=== PATIENT | female | born 1980 | race Caucasian/White ===

== ENCOUNTER 2017-01-08 19:19 | Emergency (ER) | payer OTHER, MEDICAID ==
[2017-01-08 20:27] VITALS: BP 119/76
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
== END 2017-01-08 22:08 | disposition admitted as inpatient to this hospital (09) ==
LOC: ER 19:19
DX: O9A.213 Injury, poisoning and certain other consequences of external causes complicating pregnancy, third trimester (principal); S69.91XA Unspecified injury of right wrist, hand and finger(s), initial encounter; V59.50XA Passenger in pick-up truck or van injured in collision with unspecified motor vehicles in traffic accident, initial encounter; O99.89 Other specified diseases and conditions complicating pregnancy, childbirth and the puerperium; M54.2 Cervicalgia; M79.644 Pain in right finger(s); O26.893 Other specified pregnancy related conditions, third trimester; R42 Dizziness and giddiness; Z88.0 Allergy status to penicillin; Z88.8 Allergy status to other drugs, medicaments and biological substances; Z3A.28 28 weeks gestation of pregnancy
CPT/HCPCS: 99284; 73140; 72125; L0120

== ENCOUNTER 2017-01-08 22:05 | Outpatient (CLI) | payer OTHER, MEDICAID ==
[2017-01-08 22:51] LABS: APPEARANCE,URINE SLIGHTLY-CLOUDY; BILIRUBIN,URINE NEGATIVE (NEGATIVE); GLUCOSE, URINE NEGATIVE (NEGATIVE); KETONES,URINE NEGATIVE (NEGATIVE); LEUKOCYTE ESTERASE,URINE NEGATIVE (NEGATIVE); NITRITE,URINE NEGATIVE (NEGATIVE); PROTEIN,URINE NEGATIVE (NEGATIVE); URINE SPECIFIC GRAVITY 1.028; UROBILINOGEN,URINE NEGATIVE mg/dL (<2.0)
[2017-01-08 23:04] LABS: URINE BARBITURATES SCREEN NEGATIVE; URINE METHADONE SCREEN NEGATIVE; URINE OPIATES LOW NEGATIVE; URINE PHENCYCLIDINE SCREEN NEGATIVE
[2017-01-09 00:08] LABS: PROTHROMBIN TIME 12.3 SEC (11.4-15.4)
[2017-01-09 00:09] LABS: FIBRINOGEN 503 mg/dL (209-497); PARTIAL THROMBOPLASTIN TIME 26.7 SEC (23.5-35.8)
[2017-01-09] MEDS ORDERED: ACETAMINOPHEN 325 MG TABLET PO ONE (00:45)
[2017-01-09] MEDS ORDERED: CYCLOBENZAPRINE HCL 10 MG TABLET PO ONE (00:45)
[2017-01-09] MEDS ORDERED: ACETAMINOPHEN 325 MG TABLET ONE (00:49)
[2017-01-09] MEDS ORDERED: CYCLOBENZAPRINE HCL 10 MG TABLET ONE (00:49)
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
[2017-01-09 02:02] LABS: TOTAL RBC COUNT 2028; TYPE IN FILE? TYPE IN FILE; VOL OF FETOMATERNAL HEMORRHAGE 0 ML (0)
== END 2017-01-09 03:14 | disposition home or self-care (01) ==
LOC: LC 22:05
PROVIDERS: ATTEND Student in an Organized Health Care Education/Training Program
DX: O99.89 Other specified diseases and conditions complicating pregnancy, childbirth and the puerperium (principal); R10.32 Left lower quadrant pain; V89.2XXA Person injured in unspecified motor-vehicle accident, traffic, initial encounter
CPT/HCPCS: 36415; 76815; 80307; 81001; 85384; 85460; 85610; 85730

== ENCOUNTER 2017-03-05 16:58 | Outpatient (CLI) | payer MEDICAID ==
--- NOTE | 2017-03-05 17:25 | Non Stress Test Report ---
Non Stress Test Datetime Report Generated by CPN: 03/05/2017 17:25 DEMOGRAPHIC EGA NST: 38.5 INDICATION Indication for Study: Ordered by Provider; Other Indication for Study (NST) Other: h/o positive afp VITAL SIGNS Temperature - NST: 97.9 Pulse - NST: 91 RESP - NST: 20 NBPSYS NST: 105 NBPDIA NST: 56 MONITORING Monitor Explained: Monitor Explained; Test Explained; Patient Verbalized Understanding Time on Monitor: 03/05/2017 17:10 NST INTERVENTIONS NST Interventions: PO Hydration; Reposition Patient Physician Notified NST: Castro BABY A: [id number] BABY A Movement : Present NST Review and Verified By : K Jah RNC NST REPORT Report Trigger: Send Report
== END 2017-03-05 17:36 | disposition home or self-care (01) ==
LOC: LC 16:58
PROVIDERS: ATTEND Student in an Organized Health Care Education/Training Program
PROC: 4A1HXCZ Monitoring of Products of Conception, Cardiac Rate, External Approach (ICD-10-PCS; principal; 2017-03-05)
DX: Z34.93 Encounter for supervision of normal pregnancy, unspecified, third trimester (principal)
CPT/HCPCS: 59025

== ENCOUNTER 2017-03-15 16:58 | Outpatient (CLI) | payer MEDICAID ==
--- NOTE | 2017-03-22 20:10 | Non Stress Test Report ---
Non Stress Test Datetime Report Generated by CPN: 03/22/2017 20:10 DEMOGRAPHIC EGA NST: 40.1 INDICATION Indication for Study: Ordered by Provider Indication for Study (NST) Other: abn afp VITAL SIGNS Temperature - NST: 97.7 Pulse - NST: 73 RESP - NST: 16 NBPSYS NST: 107 NBPDIA NST: 66 MONITORING Monitor Explained: Monitor Explained; Test Explained; Patient Verbalized Understanding Time on Monitor: 03/15/2017 17:14 Time off Monitor: 03/15/2017 18:30 NST Duration: 76 NST INTERVENTIONS NST Interventions: PO Hydration; Reposition Patient BABY A: [id number] BABY A Movement : Present FHR Baseline : 120 Accelerations : 15X15 Decelerations : None Variability : Moderate 6-25bpm NST Review: Meets Criteria for Reactive NST NST Review and Verified By : V Monk RN NST Results: Reactive NST REPORT Report Trigger: Send Report
== END 2017-03-15 18:36 | disposition home or self-care (01) ==
LOC: LC 16:58
PROVIDERS: ATTEND Obstetrics & Gynecology
PROC: 4A1HXCZ Monitoring of Products of Conception, Cardiac Rate, External Approach (ICD-10-PCS; principal; 2017-03-15)
DX: Z34.93 Encounter for supervision of normal pregnancy, unspecified, third trimester (principal)
CPT/HCPCS: 59025

== ENCOUNTER 2017-03-23 07:59 | Inpatient (IN) | payer MEDICAID ==
[2017-03-23] MEDS ORDERED: FENTANYL CITRATE INJ/PF 100 MCG/2 ML AMPUL ONE (09:19)
[2017-03-23] MEDS ORDERED: FENTANYL CITRATE INJ/PF 100 MCG/2 ML AMPUL IV ONE (09:21)
[2017-03-23] MEDS ORDERED: RINGERS SOLUTION,LACTATED 300 ML IV ONE (09:22)
[2017-03-23] MEDS ORDERED: RINGERS SOLUTION,LACTATED 1,000 ML IV PRN (09:22)
[2017-03-23] MEDS ORDERED: OXYTOCIN/NORMAL SALINE 20 UNIT/1,000 ML RTUINJ IV PRN ×2 (09:22→14:34)
[2017-03-23] MEDS ORDERED: OXYTOCIN/NORMAL SALINE 20 UNIT/1,000 ML RTUINJ ONE (09:29)
[2017-03-23] MEDS ORDERED: LIDOCAINE 1% INJ-PF (10 MG/ML) 30 ML SDV ONE (10:23)
[2017-03-23] MEDS ORDERED: MISOPROSTOL 0.2 MG TABLET ONE (10:23)
[2017-03-23 10:24] LABS: ABSOLUTE EOSINOPHILS # (AUTO) 0.2 10^3/uL (0.0-0.6); ABSOLUTE LYMPHOCYTES (AUTO) 2.4 10^3/uL (0.5-4.7); ABSOLUTE MONOCYTES (AUTO) 1.2 10^3/uL (0.1-1.4); ABSOLUTE NEUT (AUTO) 11.9 10^3/uL (1.7-8.2); BASOPHILS % (AUTO) 0.3 % (0-2); HEMATOCRIT 36.4 % (36.0-47.0); HEMOGLOBIN 12.5 g/dL (12.0-15.5); HGB HCT DIFFERENCE 1.1; LYMPHOCYTES % (AUTO) 15.5 % (13-45); MEAN CORPUSCULAR HEMOGLOBIN 31.1 pg (27.0-33.4); MEAN CORPUSCULAR HGB CONC 34.4 g/dL (32.0-36.0); MEAN CORPUSCULAR VOLUME 90 fl (80-97); MONOCYTES % (AUTO) 7.7 % (3-13); RED BLOOD COUNT 4.02 10^6/uL (3.72-5.28); RED CELL DISTRIBUTION WIDTH 14.8 % (11.5-14.0); SEGMENTED NEUTROPHILS % (AUTO) 75.5 % (42-78); WHITE BLOOD COUNT 15.8 10^3/uL (4.0-10.5)
[2017-03-23] MEDS ORDERED: BUPIVACAINE HCL 0.25 % INJ/PF (2.5 MG/1 ML) 30 ML VIAL ONE (10:24)
[2017-03-23] MEDS ORDERED: EPHEDRINE SULFATE INJ 50 MG/1 ML AMPULE ONE (10:24)
[2017-03-23] MEDS ORDERED: FENTANYL/BUPIVACAINE/NS/PF 200 MCG/100 ML RTUINJ EPI ONE (10:24)
[2017-03-23] MEDS ORDERED: HYDROXYZINE PAMOATE 50 MG CAPSULE ONE (11:41)
[2017-03-23] MEDS ORDERED: HYDROXYZINE PAMOATE 50 MG CAPSULE PO ONE (11:44)
[2017-03-23 12:47] LABS: APPEARANCE,URINE CLEAR; BILIRUBIN,URINE NEGATIVE (NEGATIVE); GLUCOSE, URINE NEGATIVE (NEGATIVE); KETONES,URINE NEGATIVE (NEGATIVE); LEUKOCYTE ESTERASE,URINE NEGATIVE (NEGATIVE); NITRITE,URINE NEGATIVE (NEGATIVE); PROTEIN,URINE NEGATIVE (NEGATIVE); URINE SPECIFIC GRAVITY 1.003; UROBILINOGEN,URINE NEGATIVE mg/dL (<2.0)
[2017-03-23 13:03] LABS: URINE BARBITURATES SCREEN NEGATIVE; URINE METHADONE SCREEN NEGATIVE; URINE OPIATES LOW NEGATIVE; URINE PHENCYCLIDINE SCREEN NEGATIVE
[2017-03-23] MEDS ORDERED: DIBUCAINE 1% OINTMENT 28 GM TP PRN ×2 (14:34→15:04)
[2017-03-23] MEDS ORDERED: MEASLES,MUMPS&RUBELLA VACC/PF 0.5 ML VIAL SUBCUT PRN ×2 (14:34→15:04)
[2017-03-23] MEDS ORDERED: BENZOCAINE/MENTHOL AEROSOL SPRAY 56 ML TOP PRN (14:34)
[2017-03-23] MEDS ORDERED: ZOLPIDEM TARTRATE 5 MG TABLET PO PRN ×2 (14:34→15:04)
[2017-03-23] MEDS ORDERED: DIPH/PERTUSS(ACELL)/TETANUS VAC/PF 0.5 ML SYR (>=10YO) IM PRN ×2 (14:34→15:04)
--- NOTE | 2017-03-23 16:25 | Admission Physical ---
Datetime Report Generated by CPN: 03/23/2017 16:25 CURRENT ADMISSION Chief Complaint: Scheduled Induction of Labor Indication for Induction: Post Dates Indication for Induction: Term, Intrauterine ; No Active Labor Admit Plan: Admit to Unit; Initiate Labor Induction Protocol ALLERGIES Medication Allergies: Yes Medication Allergies: promethazine HCl (03/15/2017); amoxicillin trihydrate (03/15/2017); Potassium Clavulanate * (03/15/2017) Medication Allergies: promethazine HCl (03/05/2017); amoxicillin trihydrate (03/05/2017); Potassium Clavulanate * (03/05/2017) Medication Allergies: promethazine HCl (01/08/2017); amoxicillin trihydrate (01/08/2017); Potassium Clavulanate * (01/08/2017) Food Allergies: NKA Environmental Allergies: NKA OBSTETRICAL HISTORY EDC: 03/14/2017 00:00 : 2 Para: 1 Term: 1 : 0 SAB: 0 IAB: 0 Ectopic: 0 Livin Cesareans: 0 VBACs: 0 Multiple Births: 0 Gestational Diabetes: No Rh Sensitization: No Incompetent Cervix: No ALISON: No Infertility: No ART Treatment: No Uterine Anomaly: No IUGR: Yes Hx Previous C/S: No Macrosomia: No Hx Loss/Stillborn: No PIH: No Hx : No Placenta Previa/Abruption: No Depression/PP Depression: Yes PTL/PROM: No Post Hemorrhage: No Current Procedures: Ultrasound; NST Obstetrical History Comments: g1 - 2009 @ 39 wks 5lbs 9oz cleft lip/palate, IUGR g2 - Current +AFP SEE RECORDS Alcohol: Yes Marijuana : Yes Cocaine: No Cigarettes: Current Everyday Smoker. 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; INFECTIOUS HISTORY Gonorrhea: No Genital Herpes: No Chlamydia: No Tuberculosis: No Syphilis: No Hepatitis: No HIV/AIDS Exposure: No Rash or Viral Illness: No HPV: No PHYSICAL EXAM General: Normal HEENT: Normal Neurologic: Normal Thyroid: Normal Heart: Normal Lungs: Normal Breast: Normal Back: Normal Abdomen: Normal Genitourinary Exam: Normal Extremities: Normal DTRs: Normal Pelvic Type: Adequate Vital Signs: Reviewed VAGINAL EXAM Dilatation: 3 Effacement: 50 Station: 0 MEMBRANES Membranes: Ruptured Amniotic Fluid Color: Clear FETUS A EGA: 41.2 Monitoring: External US FHR- Baseline: 120 Variability: Moderate 6-25bpm Accelerations: 15X15 Decelerations: None FHR Category: Category I Presentation: Oblique Admit Comment: 36 yo admitted for postdates EDC 03/14/17 EGA 41.2 excessive smoker- one plus ppd previous infant with cleft lip/ palate poor dentition anxiety history of vertigo failed 1 hour gtt- 3 hour gtt- not completed/ random yesterday 124 pt states she had candy prior [place] pubis pain sve 3/50/0 AROM clear pt requests IV pain medicine now awaiting labs anticipate poc reviewed with spouse and pt. PLANS FOR LABOR AND DELIVERY Labor and Delivery: None Pain Management: Medications; Epidural Feeding Preference: Formula Benefit of Breast Feed Discussed: Yes Circumcision: Yes INFORMED CONSENT Assignment: Evie Richardson MD Signature: with User ID: [email or web address] : with User ID: [email or web address]
[2017-03-23] MEDS ORDERED: DOCUSATE SODIUM 100 MG CAPSULE PO SCH (18:00)
[2017-03-23] MEDS ORDERED: FERROUS SULFATE 325 MG TABLET PO SCH (18:00)
[2017-03-23] MEDS: FERROUS SULFATE 325 MG TABLET PO SCH (19:15)
[2017-03-23] MEDS: DOCUSATE SODIUM 100 MG CAPSULE PO SCH (19:15)
[2017-03-23] MEDS ORDERED: ACETAMINOPHEN WITH CODEINE #3 TABLET PO PRN (20:01)
[2017-03-23] MEDS: IBUPROFEN 800 MG TABLET PO SCH (21:11)
[2017-03-23] MEDS: ACETAMINOPHEN WITH CODEINE #3 TABLET PO PRN (21:12)
[2017-03-23] MEDS: BENZOCAINE/MENTHOL AEROSOL SPRAY 56 ML TOP PRN (21:25)
[2017-03-23] MEDS ORDERED: IBUPROFEN 800 MG TABLET PO SCH (22:00)
[2017-03-24] MEDS: ACETAMINOPHEN WITH CODEINE #3 TABLET PO PRN ×4 (02:15→21:11)
[2017-03-24] MEDS: IBUPROFEN 800 MG TABLET PO SCH ×3 (05:38→22:06)
[2017-03-24 07:47] LABS: HEMATOCRIT 32.4 % (36.0-47.0); HEMOGLOBIN 11.2 g/dL (12.0-15.5); HGB HCT DIFFERENCE 1.2; MEAN CORPUSCULAR HGB CONC 34.5 g/dL (32.0-36.0); MEAN CORPUSCULAR VOLUME 90 fl (80-97); RED BLOOD COUNT 3.61 10^6/uL (3.72-5.28); RED CELL DISTRIBUTION WIDTH 14.9 % (11.5-14.0)
--- NOTE | 2017-03-24 09:59 | PDOC PROGRESS REPORT ---
Subjective-OB Subjective: Post Delivery Day: 36 year old. Denies any needs at this time s/p vaginal delivery smoker high anxiety reports not feeling well this morning pain not managed well- had tylenol 3 earlier VSS hasn't smoked since earlier this morning [id number] mild lochia spouse at bedside will review with RN for pain mgmt Physical Exam (OB) Vital Signs: Temp Pulse Resp BP Pulse Ox 97.7 F 69 17 115/63 99 03/24/17 07:40 03/24/17 07:40 03/24/17 07:40 03/24/17 07:40 03/24/17 07:40 Intake & Output 03/23/17 03/24/17 03/25/17 06:59 06:59 06:59 Weight 84 kg - PIH/Pre-Eclampsia Clonus: Negative - Lochia Lochia Amount: Moderate 25-50 ml Lochia Color: Rubra/Red - Abdomen Description: Tender Hernia Present: No Fundal Description: Firm Fundal Height: u/u - u/2 Objective-Diagnostic Laboratory: 03/24/17 07:16 03/23/17 03/23/17 03/23/17 10:01 10:01 12:23 WBC 15.8 H RBC 4.02 Hgb 12.5 Hct 36.4 MCV 90 MCH 31.1 MCHC 34.4 RDW 14.8 H Plt Count 143 L Seg Neutrophils % 75.5 Lymphocytes % 15.5 Monocytes % 7.7 Eosinophils % 1.0 Basophils % 0.3 Absolute Neutrophils 11.9 H Absolute Lymphocytes 2.4 Absolute Monocytes 1.2 Absolute Eosinophils 0.2 Absolute Basophils 0.0 Urine Color STRAW Urine Appearance CLEAR Urine pH 7.0 Ur Specific B[place] 1.003 Urine Protein NEGATIVE Urine Glucose (UA) NEGATIVE Urine Ketones NEGATIVE Urine Blood MODERATE H Urine Nitrite NEGATIVE Ur Leukocyte Esterase NEGATIVE Blood Type A POSITIVE Antibody Screen NEGATIVE 03/24/17 07:16 WBC 15.0 H RBC 3.61 L Hgb 11.2 L Hct 32.4 L MCV 90 MCH 31.0 MCHC 34.5 RDW 14.9 H Plt Count 125 L Seg Neutrophils % Lymphocytes % Monocytes % Eosinophils % Basophils % Absolute Neutrophils Absolute Lymphocytes Absolute Monocytes Absolute Eosinophils Absolute Basophils Urine Color Urine Appearance Urine pH Ur Specific [place]ison Urine Protein Urine Glucose (UA) Urine Ketones Urine Blood Urine Nitrite Ur Leukocyte Esterase Blood Type Antibody Screen
[2017-03-24] MEDS ORDERED: PRENATAL VITAMIN W-O CA NO5/FE FUMARATE/FA CAPSULE PO SCH (10:00)
[2017-03-24] MEDS ORDERED: SENNOSIDES/DOCUSATE 8.6-50 MG 1 EACH TABLET PO SCH (10:00)
[2017-03-24] MEDS: BENZOCAINE/MENTHOL AEROSOL SPRAY 56 ML TOP PRN (10:03)
[2017-03-24] MEDS: PRENATAL VITAMIN W-O CA NO5/FE FUMARATE/FA CAPSULE PO SCH (10:04)
[2017-03-24] MEDS: DOCUSATE SODIUM 100 MG CAPSULE PO SCH ×2 (10:04→17:03)
[2017-03-24] MEDS: SENNOSIDES/DOCUSATE 8.6-50 MG 1 EACH TABLET PO SCH (10:04)
[2017-03-24] MEDS: FERROUS SULFATE 325 MG TABLET PO SCH ×2 (10:04→17:03)
[2017-03-25] MEDS: ACETAMINOPHEN WITH CODEINE #3 TABLET PO PRN ×2 (05:16→09:06)
[2017-03-25] MEDS: IBUPROFEN 800 MG TABLET PO SCH (05:17)
[2017-03-25] MEDS: PRENATAL VITAMIN W-O CA NO5/FE FUMARATE/FA CAPSULE PO SCH (09:05)
[2017-03-25] MEDS: SENNOSIDES/DOCUSATE 8.6-50 MG 1 EACH TABLET PO SCH (09:05)
[2017-03-25] MEDS: FERROUS SULFATE 325 MG TABLET PO SCH (09:06)
[2017-03-25] MEDS: DOCUSATE SODIUM 100 MG CAPSULE PO SCH (09:06)
--- NOTE | 2017-03-25 09:25 | PDOC PROGRESS REPORT ---
Subjective-OB Subjective: Post Delivery Day: 36 year old. Denies any needs at this time Doing ok, aching all over from pushing, FOB in room, ready to go home, wants circumcision, eating well, voiding Physical Exam (OB) Vital Signs: Temp Pulse Resp BP Pulse Ox 97.8 F 79 17 98/50 L 96 03/25/17 07:49 03/25/17 07:49 03/25/17 07:49 03/25/17 07:49 03/25/17 07:49 Intake & Output 03/24/17 03/25/17 03/26/17 06:59 06:59 06:59 Intake Total 650 Balance 650 Weight 84 kg - PIH/Pre-Eclampsia Clonus: Negative - Lochia Lochia Amount: Scant < 10 ml Lochia Color: Rubra/Red - Abdomen Description: Tender, Soft, Round Hernia Present: No Fundal Description: Firm, Midline Fundal Height: u/u - u/2 Objective-Diagnostic Laboratory: 03/24/17 07:16 Assessment and Plan(PN) - Assessment and Plan (1) Anxiety Is this a current diagnosis for this admission?: Yes (2) Normal vaginal delivery Is this a current diagnosis for this admission?: Yes - Time Spent with Patient Time with patient: Less than 15 minutes Medications reviewed and adjusted accordingly: Yes - Disposition Anticipated Discharge: Home
--- NOTE | 2017-03-25 09:28 | PDOC DISCHARGE SUMMARY ---
Final Diagnosis Discharge Date: 03/25/17 - Final Diagnosis (1) Anxiety Is this a current diagnosis for this admission?: Yes (2) Normal vaginal delivery Is this a current diagnosis for this admission?: Yes Discharge Data - Discharge Medication Home Medications: Pnv 102/Iron/Folate 1/Dss/Dha [Vitafol Fe+ Docusate Combo Pck] 1 tab PO DAILY Meclizine HCl 1 tab PO DAILY 03/23/17 Clindamycin HCl 1 tab PO DAILY 03/24/17 Oxycodone HCl/Acetaminophen [Percocet 5-325 mg Tablet] 1 tab PO Q4 PRN 03/24/17 Gestational Age: 41.2 Reason(s) for Admission: Induction of Labor Procedures: NST, Ultrasound Intrapartum Procedure(s): Spontaneous Vaginal Delivery Complication(s): Laceration-Vaginal Laceration-Degree: 2nd - [place] Data Baby 1 Male at 1 minute: 7 at 5 minutes: 8 Weight: 3.6 kg Home with Mother: Yes Complications: No - Diagnosis Test Laboratory: Temp Pulse Resp BP Pulse Ox 97.8 F 79 17 98/50 L 96 03/25/17 07:49 03/25/17 07:49 03/25/17 07:49 03/25/17 07:49 03/25/17 07:49 03/23/17 03/23/17 03/24/17 10:01 12:23 07:16 RBC 4.02 3.61 L Hgb 12.5 11.2 L Hct 36.4 32.4 L Urine Opiates Screen NEGATIVE - Discharge information/Instructions Discharge Activity: Activity As Tolerated, No Lifting Over 10 Pounds, Pelvic Rest Discharge Diet: As Tolerated, Regular Disposition: HOME, SELF-CARE Follow up with: [facility] in: 4, Weeks
[2017-03-25 10:35] VITALS: BP 120/68
--- NOTE | 2017-03-31 09:41 | Delivery Summary ---
Del Sum A-C Datetime Report Generated by CPN: 03/31/2017 09:41 DELIVERY PERSONNEL DELIVERY PERSONNEL: [id number] Delivery Doctor:: Kiesha Su CNM Labor and Delivery Nurse:: Dai Colindres, inventory transcriber Nurse:: Bertha Greenberg, RN Nursery Nurse:: Jillian Zheng, RN Student Observers:: Joyce Delacruz Amkim Ellis Abhishek Leather Leveler/TRAVEL RN OR: Wendy Boucher, [employer] Additional Personnel: : Hollie Ortiz, RNC MATERNAL INFORMATION Delivery Anesthesia: Epidural Medications After Delivery: Pitocin Drip 20 Units/1000ml NSS Estimated Blood Loss (ml): 275 Maternal Complications: None Provider Comments: delivery of viable male JR compound right hand infant to abdomen nursery at bedside cord clamped and cut by FOB 3VC cord blood obtained placenta intact and reviewed tripathi fashion minor atony relieved with removal of lingering placental products EBL 275 cc pt bonding well with hemostasis achieved LABOR SUMMARY EDC: 03/14/2017 00:00 No. Babies in Womb: 1 Attempted: No Labor Anesthesia: Epidural LABOR INFORMATION Reason for Induction: Post Dates Onset of Labor: 03/23/2017 09:12 Complete Dilatation: 03/23/2017 13:24 Oxytocin: Induction Group B Beta Strep: Negative Steroids Given: None Reason Steroids Not Administered: Not Applicable MEMBRANES Membranes Rupture Method: Artificial Rupture of Membranes: 03/23/2017 09:12 Length of Rupture (hr): 4.68 Amniotic Fluid Color: Clear Amniotic Fluid Amount: Large Amniotic Fluid Odor: Normal STAGES OF LABOR Stage 1 hr: 4 Stage 1 min: 12 Stage 2 hr: 0 Stage 2 min: 29 Stage 3 hr: 0 Stage 3 min: 3 Total Time in Labor hr: 4 Total Time in Labor min: 44 VAGINAL DELIVERY Episiotomy: None Laceration #1: Vaginal Laceration Extension #1: Second Degree Laceration Repair: Yes Laceration Repair Note: 2nd degree vaginal laceration repaired under epidural Sharps Count Correct: Yes CSECTION DELIVERY Primary Indication: N/A Secondary Indication: N/A BABY A INFORMATION Infant Delivery Date/Time: 03/23/2017 13:53 Method of Delivery: Vaginal Born in Route : No : N/A Forceps: N/A Vacuum Extraction: N/A Shoulder Dystocia : No PRESENTATION/POSITION BABY A Presentation: Cephalic Cephalic Presentation: Vertex Vertex Position: Right Occipital Anterior Breech Presentation: N/A PLACENTA INFORMATION BABY A Placenta Delivery Time : 03/23/2017 13:56 Placenta Method of Delivery: Spontaneous Placenta Status: Delivered SCORES BABY A Heart Rate 1 min: >100 bpm Resp Effort 1 min: Slow, Irregular Reflex Irritability 1 min: Cough or Sneeze or Pulls Away Muscle Tone 1 min: Active Motion Color 1 min: Blue/Pale Resuscitation Effort 1 min: Tactile Stimulation SCORE 1 MIN: 7 Heart Rate 5 min: >100 bpm Resp Effort 5 min: Slow, Irregular Reflex Irritability 5 min: Cough or Sneeze or Pulls Away Muscle Tone 5 min: Active Motion Color 5 min: Body [place], Extremities Blue Resuscitation Effort 5 min: Tactile Stimulation SCORE 5 MIN: 8 INFANT INFORMATION BABY A Gestational Age at Delivery: 41.2 Gestational Status: Late Term- 41- 41.6 Weeks Infant Outcome : Liveborn Condition : Stable Infant Sex: Male IDENTIFICATION BABY A Infant Verification Date/Time: 03/23/2017 14:27 ID Band Number: [id number] Mother's Name Verified: Yes RN Verifying : Dai Astudillomes Additional Verifying Personnel: Bertha Greenberg WEIGHT/LENGTH BABY A Birthweight (gm): 3590 Weight (lb): 7 Infant Weight (oz): 15 Length (in): 22.00 Infant Length (cm): 55.88 CORD INFORMATION BABY A No. Cord Vessels: 3 Nuchal Cord : N/A Cord Blood Taken: No-Annotate Suction: Mouth ASSESSMENT BABY A Complications: Other Infant Complications- Other: Right compound hand Physical Findings at Delivery: Within Normal Limits Respirations: Appears Normal Skin to Skin: Yes Skin to Skin: Yes Skin to Skin Time (min): 5 Skin to Skin Time (min): 5 Biometric Fingerprinting Technician/ALS Called : No Care By: Suki hZeng RN Transferred To: Nursery BABY B INFORMATION : N/A SIGNATURES Assignment: Evie Richardson MD Signature: with User ID: [email or web address]
== END 2017-03-25 17:10 | disposition home or self-care (01) | DRG 775 ==
LOC: LR 07:59 → 2S 16:24
PROVIDERS: ADMIT Specialist; ATTEND Specialist
PROC: 10E0XZZ Delivery of Products of Conception, External Approach (ICD-10-PCS; principal; 2017-03-23)
PROC: 0KQM0ZZ Repair Perineum Muscle, Open Approach (ICD-10-PCS; 2017-03-23)
PROC: 10907ZC Drainage of Amniotic Fluid, Therapeutic from Products of Conception, Via Natural or Artificial Opening (ICD-10-PCS; 2017-03-23)
PROC: 3E033VJ Introduction of Other Hormone into Peripheral Vein, Percutaneous Approach (ICD-10-PCS; 2017-03-23)
PROC: 4A1HXCZ Monitoring of Products of Conception, Cardiac Rate, External Approach (ICD-10-PCS; 2017-03-23)
DX: O48.0 Post-term pregnancy (principal); O99.344 Other mental disorders complicating childbirth; F32.9 Major depressive disorder, single episode, unspecified; F41.9 Anxiety disorder, unspecified; O70.1 Second degree perineal laceration during delivery; O99.334 Smoking (tobacco) complicating childbirth; F17.210 Nicotine dependence, cigarettes, uncomplicated; F10.21 Alcohol dependence, in remission; O99.313 Alcohol use complicating pregnancy, third trimester; O32.6XX0 Maternal care for compound presentation, not applicable or unspecified; Z28.82 Immunization not carried out because of caregiver refusal; Z3A.41 41 weeks gestation of pregnancy; Z37.0 Single live birth
CPT/HCPCS: 36415; 80307; 81005; 85025; 85027; 86592; 86850; 86900; 86901; 88307; 94760; J2590; J3010; J3490

== ENCOUNTER 2017-11-16 22:07 | Emergency (ER) | payer MEDICAID, OTHER ==
--- NOTE | 2017-11-17 00:53 | ER Document Report ---
ED Medical Screen (RME) - General Chief Complaint: Toothache Stated Complaint: TOOTHACHE Time Seen by Provider: 11/17/17 00:43 Notes: Patient is a 37-year-old female presents emergency department the chief complaint of dizziness. Patient states that she has a history of vertigo that does not respond to meclizine she had previously followed with a neurologist and her primary care doctor Dr. Sanchez. Patient states that she has not been following with them since she delivered her child 7 months ago. She states that over the past week or 2 that she has had worsening dizziness. She denies any numbness or tingling. TRAVEL OUTSIDE OF THE [place] IN LAST 30 DAYS: No - Related Data Allergies/Adverse Reactions: amoxicillin trihydrate [From Augmentin] Allergy (Verified 03/15/17 17:36) Potassium Clavulanate * [From Augmentin] Allergy (Verified 03/15/17 17:36) promethazine HCl [From Phenergan] Allergy (Verified 03/15/17 17:36) Past Medical History Pulmonary Medical History: Reports: Hx Bronchitis Neurological Medical History: Reports: Hx Migraine Renal/ Medical History: Reports: Hx Ovarian Cysts. Denies: Hx Peritoneal Dialysis GI Medical History: Reports: Hx Irritable Bowel Psychiatric Medical History: Reports: Hx Anxiety, Hx Depression Past Surgical History: Reports: Hx Oral Surgery - Immunizations Immunizations up to date: No Hx Diphtheria, Pertussis, Tetanus Vaccination: No History of Influenza Vaccine for 03/2017 - 08/2017 Season: Refused Physical Exam - Vital signs Vitals: Temp Pulse Resp BP Pulse Ox 97.7 F 89 20 125/70 98 11/16/17 23:08 11/16/17 23:08 11/16/17 23:08 11/16/17 23:08 11/16/17 23:08 Course - Vital Signs Vital signs: Temp Pulse Resp BP Pulse Ox 97.7 F 89 20 125/70 98 11/16/17 23:08 11/16/17 23:08 11/16/17 23:08 11/16/17 23:08 11/16/17 23:08 Doctor's Discharge - Discharge Referrals: ALENA AGUILAR MD [Primary Care Provider] - Follow up as needed
[2017-11-17] MEDS ORDERED: TRAMADOL HCL 50 MG TABLET PO ONE ×2 (01:08→02:46)
[2017-11-17] MEDS ORDERED: MECLIZINE HCL 25 MG TABLET PO ONE (01:46)
[2017-11-17] MEDS ORDERED: CLINDAMYCIN HCL 150 MG CAPSULE PO ONE (01:47)
--- NOTE | 2017-11-17 02:15 | ER Document Report ---
ED Oral Problem - General Chief Complaint: Dizziness Stated Complaint: TOOTHACHE Time Seen by Provider: 11/17/17 00:43 Notes: Patient is a 37-year-old female who comes in complaining of right upper dental pain that she has had for some time. Patient cannot get into a dentist until November 25. No facial swelling. No fever. Patient has a history of vertigo and states that has been worse recently as well. No meclizine at home. Patient has a headache from her toothache she states. TRAVEL OUTSIDE OF THE [place] IN LAST 30 DAYS: No - HPI Patient complains to provider of: Toothache Onset: Other Quality of pain: Dull Severity: Moderate Associated symptoms: Headache Worsened by: Cold Similar symptoms previously: No Recently seen / treated by doctor/dentist: No - Related Data Allergies/Adverse Reactions: amoxicillin trihydrate [From Augmentin] Allergy (Verified 03/15/17 17:36) Potassium Clavulanate * [From Augmentin] Allergy (Verified 03/15/17 17:36) promethazine HCl [From Phenergan] Allergy (Verified 03/15/17 17:36) Past Medical History - Social History Smoking Status: Unknown if Ever Smoked Family History: Arthritis, CAD, CVA, DM, Hyperlipidemia, Hypertension, Malignancy, Thyroid Disfunction Patient has suicidal ideation: No Patient has homicidal ideation: No Pulmonary Medical History: Reports: Hx Bronchitis Neurological Medical History: Reports: Hx Migraine Renal/ Medical History: Reports: Hx Ovarian Cysts. Denies: Hx Peritoneal Dialysis GI Medical History: Reports: Hx Irritable Bowel Psychiatric Medical History: Reports: Hx Anxiety, Hx Depression Past Surgical History: Reports: Hx Oral Surgery - Immunizations Immunizations up to date: No Hx Diphtheria, Pertussis, Tetanus Vaccination: No Review of Systems - Review of Systems Constitutional: No symptoms reported EENT: See HPI Cardiovascular: No symptoms reported Respiratory: No symptoms reported Gastrointestinal: No symptoms reported Genitourinary: No symptoms reported Female Genitourinary: No symptoms reported Musculoskeletal: No symptoms reported Skin: No symptoms reported Hematologic/Lymphatic: No symptoms reported Neurological/Psychological: No symptoms reported Physical Exam - Vital signs Vitals: Temp Pulse Resp BP Pulse Ox 97.7 F 89 20 125/70 98 11/16/17 23:08 11/16/17 23:08 11/16/17 23:08 11/16/17 23:08 11/16/17 23:08 Interpretation: Normal - General General appearance: Appears well, Alert - HEENT Head: Normocephalic, Atraumatic, Other - No facial swelling, erythema or tenderness to palpation over maxillary sinuses bilaterally. Eyes: Normal Pupils: PERRL Teeth diagram: 1 - Dental caries - Respiratory Respiratory status: No respiratory distress Chest status: Nontender Breath sounds: Normal Chest palpation: Normal - Cardiovascular Rhythm: Regular Heart sounds: Normal auscultation Murmur: No - Abdominal Inspection: Normal Distension: No distension Bowel sounds: Normal Tenderness: Nontender Organomegaly: No organomegaly - Back Back: Normal, Nontender - Extremities General upper extremity: Normal inspection, Nontender, Normal color, Normal ROM , Normal temperature General lower extremity: Normal inspection, Nontender, Normal color, Normal ROM , Normal temperature, Normal weight bearing. No: Jose David's sign - Neurological Neuro grossly intact: Yes Cognition: Normal Orientation: AAOx4 Hamer Coma Scale Eye Opening: Spontaneous Hamer Coma Scale Verbal: Oriented Karen Coma Scale Motor: Obeys Commands Hamer Coma Scale Total: 15 Speech: Normal Motor strength normal: LUE, RUE, LLE, RLE Sensory: Normal - Psychological Associated symptoms: Normal affect, Normal mood - Skin Skin Temperature: Warm Skin Moisture: Dry Skin Color: Normal Course - Re-evaluation Re-evalutation: 11/17/17 02:20 Patient feels better with meclizine for vertigo. She will be discharged home with pain medication, clindamycin for her tooth. She already has follow-up with a dentist. No evidence for abscess. Return if any worsening or concerning symptoms. Stable for discharge. - Vital Signs Vital signs: Temp Pulse Resp BP Pulse Ox 97.7 F 89 20 125/70 98 11/16/17 23:08 11/16/17 23:08 11/16/17 23:08 11/16/17 23:08 11/16/17 23:08 Discharge - Discharge Clinical Impression: Toothache, Vertigo Condition: Stable Disposition: HOME, SELF-CARE Instructions: Meclizine ([facility]), Toothache ([facility]), Vertigo ([facility]) Prescriptions: Clindamycin HCl 300 mg PO TID #30 capsule Meclizine HCl 12.5 mg PO TID #30 tablet Tramadol HCl 50 mg PO BIDP PRN #10 tablet PRN Reason: Referrals: ALENA AGUILAR MD [Primary Care Provider] - Follow up as needed Scribe Attestation: 11/17/17 02:23 I personally performed the services described in the documentation, reviewed and edited the documentation which was dictated to the scribe in my presence, and it accurately records my words and actions.
[2017-11-17 02:41] VITALS: BP 121/85
== END 2017-11-17 02:41 | disposition home or self-care (01) ==
LOC: ER 22:07
DX: K08.9 Disorder of teeth and supporting structures, unspecified (principal); R42 Dizziness and giddiness; Z88.3 Allergy status to other anti-infective agents
CPT/HCPCS: 99282; J3490

== ENCOUNTER 2018-01-03 22:53 | Emergency (ER) | payer MEDICAID, OTHER ==
[2018-01-03 23:54] LABS: ABSOLUTE BASOPHILS # (AUTO) 0.1 10^3/uL (0.0-0.2); ABSOLUTE EOSINOPHILS # (AUTO) 0.2 10^3/uL (0.0-0.6); ABSOLUTE LYMPHOCYTES (AUTO) 2.6 10^3/uL (0.5-4.7); ABSOLUTE MONOCYTES (AUTO) 0.9 10^3/uL (0.1-1.4); ABSOLUTE NEUT (AUTO) 7.4 10^3/uL (1.7-8.2); BASOPHILS % (AUTO) 0.5 % (0-2); EOSINOPHILS % (AUTO) 1.8 % (0-6); HEMOGLOBIN 13.5 g/dL (12.0-15.5); LYMPHOCYTES % (AUTO) 23.4 % (13-45); MEAN CORPUSCULAR HEMOGLOBIN 30.7 pg (27.0-33.4); MEAN CORPUSCULAR HGB CONC 34.6 g/dL (32.0-36.0); MEAN CORPUSCULAR VOLUME 89 fl (80-97); PLATELET COUNT 271 10^3/uL (150-450); RED CELL DISTRIBUTION WIDTH 12.8 % (11.5-14.0); SEGMENTED NEUTROPHILS % (AUTO) 66.3 % (42-78); TOTAL CELLS COUNTED % (AUTO) 100 %; WHITE BLOOD COUNT 11.2 10^3/uL (4.0-10.5)
[2018-01-04 00:01] LABS: APPEARANCE,URINE CLEAR; BILIRUBIN,URINE NEGATIVE (NEGATIVE); COLOR,URINE YELLOW; GLUCOSE, URINE NEGATIVE (NEGATIVE); KETONES,URINE TRACE mg/dL (NEGATIVE); LEUKOCYTE ESTERASE,URINE NEGATIVE (NEGATIVE); NITRITE,URINE NEGATIVE (NEGATIVE); PROTEIN,URINE NEGATIVE (NEGATIVE); URINE SPECIFIC GRAVITY 1.031
[2018-01-04 00:09] LABS: ALANINE AMINOTRANSFERASE 29 U/L (9-52); ALBUMIN 4.6 g/dL (3.5-5.0); ALKALINE PHOSPHATASE 62 U/L (38-126); ANION GAP 16 (5-19); ASPARTATE AMINO TRANSFERASE 18 U/L (14-36); BILIRUBIN,DIRECT 0.3 mg/dL (0.0-0.4); BILIRUBIN,TOTAL 0.3 mg/dL (0.2-1.3); BLOOD UREA NITROGEN 14 mg/dL (7-20); CALCIUM 9.9 mg/dL (8.4-10.2); CARBON DIOXIDE 22 mmol/L (22-30); CHLORIDE 107 mmol/L (98-107); GLUCOSE 125 mg/dL (75-110); POTASSIUM 4.6 mmol/L (3.6-5.0); SODIUM 145.1 mmol/L (137-145); TOTAL PROTEIN 7.5 g/dL (6.3-8.2)
--- NOTE | 2018-01-04 00:49 | ER Document Report ---
ED GI/ - General Chief Complaint: Abdominal Pain Stated Complaint: STOMACH PAIN Time Seen by Provider: 01/04/18 00:34 Notes: Patient is a 37-year-old female who comes emergency department for chief complaint of abdominal pain, diarrhea, vomiting. Patient states that she some possibly were our suspicious foods, that night she started having abdominal cramping, the next day she had frequent episodes of diarrhea and a few episodes of vomiting. The following day she did not have any vomiting but she is feeling having fairly frequent episodes of diarrhea. She had a couple of episodes of diarrhea today where her poop looked whitish and she became concerned. She denies fever or chills, she is able to eat and drink now, she finished an antibiotic a couple of weeks ago for her teeth. She denies any daily medications, surgeries. No obvious sick contacts. TRAVEL OUTSIDE OF THE [place] IN LAST 30 DAYS: No - Related Data Allergies/Adverse Reactions: amoxicillin trihydrate [From Augmentin] Allergy (Verified 03/15/17 17:36) Potassium Clavulanate * [From Augmentin] Allergy (Verified 03/15/17 17:36) promethazine HCl [From Phenergan] Allergy (Verified 03/15/17 17:36) Past Medical History - General Information source: Patient - Social History Smoking Status: Never Smoker Frequency of alcohol use: Social Drug Abuse: None Lives with: Family Family History: Arthritis, CAD, CVA, DM, Hyperlipidemia, Hypertension, Malignancy, Thyroid Disfunction Pulmonary Medical History: Reports: Hx Bronchitis Neurological Medical History: Reports: Hx Migraine Renal/ Medical History: Reports: Hx Ovarian Cysts. Denies: Hx Peritoneal Dialysis GI Medical History: Reports: Hx Irritable Bowel Psychiatric Medical History: Reports: Hx Anxiety, Hx Depression Past Surgical History: Reports: Hx Oral Surgery - Immunizations Immunizations up to date: No Hx Diphtheria, Pertussis, Tetanus Vaccination: No Review of Systems - Review of Systems Constitutional: No symptoms reported EENT: No symptoms reported Cardiovascular: No symptoms reported Respiratory: No symptoms reported Gastrointestinal: See HPI Genitourinary: No symptoms reported Female Genitourinary: No symptoms reported Musculoskeletal: No symptoms reported Skin: No symptoms reported Hematologic/Lymphatic: No symptoms reported Neurological/Psychological: No symptoms reported Physical Exam - Vital signs Vitals: Temp Pulse Resp BP Pulse Ox 98.0 F 82 20 120/75 97 01/03/18 23:09 07/30/18 23:09 01/03/18 23:09 01/03/18 23:09 01/03/18 23:09 - Notes Notes: GENERAL: Alert, interacts well. No acute distress. HEAD: Normocephalic, atraumatic. EYES: Pupils equal, round, and reactive to light. Extraocular movements intact. ENT: Oral mucosa moist, tongue midline. NECK: Full range of motion. Supple. Trachea midline. LUNGS: Clear to auscultation bilaterally, no wheezes, rales, or rhonchi. No respiratory distress. HEART: Regular rate and rhythm. No murmur ABDOMEN: Soft completely benign abdomen with no tenderness. Non-distended. Bowel sounds present in all 4 quadrants. EXTREMITIES: Moves all 4 extremities spontaneously. No edema, normal radial and dorsalis pedis pulses bilaterally. No cyanosis. BACK: no cervical, thoracic, lumbar midline tenderness. No saddle anesthesia, normal distal neurovascular exam. NEUROLOGICAL: Alert and oriented x3. Normal speech. [cranial nerves II through XII grossly intact]. PSYCH: Normal affect, normal mood. SKIN: Warm, dry, normal turgor. No rashes or lesions noted. Course - Re-evaluation Re-evalutation: Patient is very well-appearing, has a soft abdomen, good bowel sounds, unremarkable vital signs. CBC unremarkable, chemistry unremarkable including LFTs, bilirubin, lipase, alk phos. Based on this I have very low suspicion of obstruction causing lack of bilirubin in stool and white stools. Most likely from simply having frequent diarrhea for days. Urinalysis shows ketones and elevated specific gravity consistent with dehydration. HCG is negative. Patient asymptomatic on my evaluation, tolerating food and fluids without any difficulty, no additional complaints. Very low suspicion of acute abdomen or even infectious etiology that requires antibiotic therapy. Most likely ingested toxin, viral etiology. Appears self-limiting, patient's symptoms have almost completely subsided. Unable to provide a stool sample at this time. Discussed results with patient, patient will be discharged with home remedies, follow-up instructions, and return precautions. These were discussed. Patient states understanding and agreement. - Vital Signs Vital signs: Temp Pulse Resp BP Pulse Ox 97.9 F 80 16 111/71 99 01/04/18 01:15 01/04/18 01:15 01/04/18 01:15 01/04/18 01:15 01/04/18 01:15 - Laboratory Result Diagrams: 01/03/18 23:30 01/03/18 23:30 Laboratory results interpreted by me: 01/03/18 01/03/18 01/03/18 23:30 23:30 23:30 WBC 11.2 H Sodium 145.1 H Glucose 125 H Urine Ketones TRACE H Urine Urobilinogen 2.0 H Discharge - Discharge Clinical Impression: Nausea vomiting and diarrhea Abdominal pain Qualifiers: Abdominal location: generalized Qualified Code(s): R10.84 - Generalized abdominal pain Condition: Stable Disposition: HOME, SELF-CARE Additional Instructions: Your laboratory workup shows dehydration but no other concerning findings. Your examination and symptoms are most consistent with either a food toxin ingestion or a viral illness which is subsiding. Drink plenty of fluids, take medications as prescribed, also recommend bland foods initially and slow progression to normal diet. Avoid irritating/inflaming substances such as alcohol, smoking, spicy foods, caffeine, NSAIDs. Follow-up with primary care. Return for any concerning symptoms including spiking fever, severe abdominal pain, returned or uncontrolled vomiting, or any other concerning or worsening symptoms. Prescriptions: Famotidine [Pepcid 20 mg Tablet] 20 mg PO BID #20 tablet Loperamide HCl [Imodium 2 mg Capsule] 2 mg PO ASDIR PRN #20 cap PRN Reason: Ondansetron [Zofran Odt 4 mg Tablet] 1 - 2 tab PO Q4H PRN #15 tab.rapdis PRN Reason: For Nausea/Vomiting Referrals: ALENA AGUILAR MD [Primary Care Provider] - Follow up as needed
[2018-01-04] MEDS ORDERED: FAMOTIDINE 20 MG TABLET PO ONE (00:56)
[2018-01-04] MEDS ORDERED: ONDANSETRON 4 MG TAB.RAPDIS PO ONE (00:56)
[2018-01-04 01:16] VITALS: BP 111/71
== END 2018-01-04 01:15 | disposition home or self-care (01) ==
LOC: ER 22:53
DX: R19.7 Diarrhea, unspecified (principal); R11.2 Nausea with vomiting, unspecified; R10.84 Generalized abdominal pain; R19.5 Other fecal abnormalities; Z88.0 Allergy status to penicillin; Z88.8 Allergy status to other drugs, medicaments and biological substances
CPT/HCPCS: 99284; 36415; 83690; 85025; 81025; 80053; 81001; J3490; S0119

== ENCOUNTER 2020-01-26 19:08 | Emergency (ER) | payer MEDICAID ==
--- NOTE | 2020-01-26 20:42 | ER Document Report ---
ED Medical Screen (RME) - General Chief Complaint: Vertigo Stated Complaint: DIZZINESS, LIGHT HEADED Time Seen by Provider: 01/26/20 20:33 Primary Care Provider: ALENA AGUILAR MD [Primary Care Provider] - Follow up as needed Mode of Arrival: Ambulatory Information source: Patient Notes: HPI; 39-year-old female past medical history significant for anxiety and vertigo presents to the emergency room complaining of worsening dizziness over the past week but has gotten progressively worse over the past 4 to 5 days. Denies any head trauma or head injury. Patient states "my head just does not feel right" feels off balance when she walks. History of vertigo which is usually relieved by meclizine. Patient states she has a hard time explaining her symptoms. Also complains of photophobia. PE: Alert and oriented x3. Mild distress noted. PERRLA, EOMI. Mild photophobia noted. Lungs: Clear to auscultation without rales, rhonchi, wheezes. Heart: Regular rate rhythm without murmurs, rubs, gallops. I have greeted and performed a rapid initial assessment of this patient. A comprehensive ED assessment and evaluation of the patient, analysis of test results and completion of the medical decision making process will be conducted by additional ED providers. I have specifically instructed the patient or family members with the patient to immediately return to any nursing staff should anything change in the patient's condition or with their chief complaint. TRAVEL OUTSIDE OF THE [place] IN LAST 30 DAYS: No - Related Data Allergies/Adverse Reactions: amoxicillin trihydrate [From Augmentin] Allergy (Verified 03/15/17 17:36) Potassium Clavulanate * [From Augmentin] Allergy (Verified 03/15/17 17:36) promethazine HCl [From Phenergan] Allergy (Verified 03/15/17 17:36) Past Medical History Pulmonary Medical History: Reports: Hx Bronchitis Neurological Medical History: Reports: Hx Migraine Renal/ Medical History: Reports: Hx Ovarian Cysts. Denies: Hx Peritoneal Dialysis GI Medical History: Reports: Hx Irritable Bowel Psychiatric Medical History: Reports: Hx Anxiety, Hx Depression Past Surgical History: Reports: Hx Oral Surgery - Immunizations Immunizations up to date: No Hx Diphtheria, Pertussis, Tetanus Vaccination: No Physical Exam - Vital signs Vitals: Temp Pulse Resp BP Pulse Ox 97.8 F 102 H 16 130/85 H 99 01/26/20 19:21 01/26/20 19:21 01/26/20 19:21 01/26/20 19:21 01/26/20 19:21 Course - Vital Signs Vital signs: Temp Pulse Resp BP Pulse Ox 97.8 F 102 H 16 130/85 H 99 01/26/20 19:21 01/26/20 19:21 01/26/20 19:21 01/26/20 19:21 01/26/20 19:21 Doctor's Discharge - Discharge Referrals: ALENA AGUILAR MD [Primary Care Provider] - Follow up as needed
--- NOTE | 2020-01-26 21:20 | RADIOLOGY REPORT (SQ) ---
EXAM DESCRIPTION: CT HEAD WITHOUT IV CONTRAST COMPLETED DATE/TME: 01/26/2020 20:38 CLINICAL HISTORY: 39 years Female dizzy COMPARISON: 04/09/2016. TECHNIQUE: Contiguous axial CT images obtained through the brain without IV contrast. This exam was performed according to our department optimization program which includes automated exposure control, adjustment of the mA and/or kv according to patient size and/or use of iterative reconstruction technique. FINDINGS: The ventricles and sulci are within normal limits for the patient's age. No midline shift or mass effect. No masses identified. No acute intracranial hemorrhage. No fluid or significant mucosal thickening in the visualized paranasal sinuses. No depressed calvarial fractures. IMPRESSION: No acute intracranial abnormality is identified.
[2020-01-26 21:37] LABS: ABSOLUTE BASOPHILS # (AUTO) 0.1 10^3/uL (0.0-0.2); ABSOLUTE EOSINOPHILS # (AUTO) 0.1 10^3/uL (0.0-0.6); ABSOLUTE LYMPHOCYTES (AUTO) 2.9 10^3/uL (0.5-4.7); ABSOLUTE MONOCYTES (AUTO) 0.8 10^3/uL (0.1-1.4); BASOPHILS % (AUTO) 1.1 % (0-2); HEMATOCRIT 39.5 % (36.0-47.0); HEMOGLOBIN 13.5 g/dL (12.0-15.5); LYMPHOCYTES % (AUTO) 24.3 % (13-45); MEAN CORPUSCULAR HEMOGLOBIN 30.7 pg (27.0-33.4); MEAN CORPUSCULAR HGB CONC 34.2 g/dL (32.0-36.0); MEAN CORPUSCULAR VOLUME 90 fl (80-97); MONOCYTES % (AUTO) 6.6 % (3-13); PLATELET COUNT 286 10^3/uL (150-450); RED BLOOD COUNT 4.38 10^6/uL (3.72-5.28); RED CELL DISTRIBUTION WIDTH 13.8 % (11.5-14.0); TOTAL CELLS COUNTED % (AUTO) 100 %
[2020-01-26 21:45] LABS: APPEARANCE,URINE CLEAR; BILIRUBIN,URINE NEGATIVE (NEGATIVE); COLOR,URINE YELLOW; GLUCOSE, URINE NEGATIVE (NEGATIVE); KETONES,URINE NEGATIVE (NEGATIVE); LEUKOCYTE ESTERASE,URINE NEGATIVE (NEGATIVE); NITRITE,URINE NEGATIVE (NEGATIVE); PROTEIN,URINE NEGATIVE (NEGATIVE); URINE SPECIFIC GRAVITY 1.017; UROBILINOGEN,URINE NEGATIVE mg/dL (<2.0)
[2020-01-26 21:57] LABS: ALBUMIN 4.8 g/dL (3.5-5.0); ALKALINE PHOSPHATASE 55 U/L (38-126); ANION GAP 9 (5-19); ASPARTATE AMINO TRANSFERASE 22 U/L (14-36); BILIRUBIN,TOTAL 0.2 mg/dL (0.2-1.3); BLOOD UREA NITROGEN 13 mg/dL (7-20); CALCIUM 9.6 mg/dL (8.4-10.2); CARBON DIOXIDE 23 mmol/L (22-30); CHLORIDE 105 mmol/L (98-107); GLUCOSE 130 mg/dL (75-110); POTASSIUM 4.1 mmol/L (3.6-5.0); TOTAL PROTEIN 7.8 g/dL (6.3-8.2)
[2020-01-26 22:07] LABS: URINE AMPHETAMINES SCREEN NEGATIVE; URINE BARBITURATES SCREEN NEGATIVE; URINE BENZODIAZEPINES SCREEN NEGATIVE; URINE COCAINE SCREEN NEGATIVE; URINE MARIJUANA (THC) SCREEN NEGATIVE; URINE METHADONE SCREEN NEGATIVE; URINE PHENCYCLIDINE SCREEN NEGATIVE
--- NOTE | 2020-01-27 01:09 | RADIOLOGY REPORT (SQ) ---
EXAM DESCRIPTION: XR CHEST 1 VIEW COMPLETED DATE/TME: 01/27/2020 00:00 CLINICAL HISTORY: sob/cough COMPARISON: 11/22/2014 FINDINGS: Single frontal radiograph view of the chest. Cardiomediastinal silhouette: Normal size and contour. Lungs: No consolidation, pneumothorax, or pleural effusion. Bones: No acute osseous abnormality. Upper abdomen: No abnormality identified. IMPRESSION: 1. No acute pulmonary process identified.
[2020-01-27] MEDS ORDERED: MECLIZINE HCL 25 MG TABLET PO ONE (01:19)
[2020-01-27] MEDS ORDERED: DIAZEPAM 5 MG TABLET PO ONE (01:19)
--- NOTE | 2020-01-27 01:22 | ER Document Report ---
ED Dizziness/Weakness - General Chief Complaint: Dizziness Stated Complaint: DIZZINESS, LIGHT HEADED Time Seen by Provider: 01/26/20 20:33 Primary Care Provider: ALINA SEN DO [ASSOCIATE] - Follow up as needed RORY LYNN MD [ACTIVE STAFF] - Follow up as needed Mode of Arrival: Ambulatory Notes: Patient is a 39-year-old female that comes emergency department for chief complaint of intermittent but worsening episodes of dizziness over the past week. She states this is been especially worse over the past 2 days or so. She denies head injury, neck pain, fever, headache. She states that with position changes and when she looks upward she will suddenly feel like she is spinning around in a [place] and feels dizzy. She states that she used to take meclizine for this but she heard that if she takes it every day she might have long-term bad side effect so she has not been taking this. Patient denies any other symptoms including chest pain, palpitations, shortness of breath. Past medical history of anxiety and vertigo. She states she has a follow-up appointment with primary care on Wednesday and potentially a referral to ENT afterwards. TRAVEL OUTSIDE OF THE [place] IN LAST 30 DAYS: No - Related Data Allergies/Adverse Reactions: amoxicillin trihydrate [From Augmentin] Allergy (Verified 03/15/17 17:36) Potassium Clavulanate * [From Augmentin] Allergy (Verified 03/15/17 17:36) promethazine HCl [From Phenergan] Allergy (Verified 03/15/17 17:36) Past Medical History - General Information source: Patient - Social History Smoking Status: Current Every Day Smoker Frequency of alcohol use: Social Lives with: Family Family History: Arthritis, CAD, CVA, DM, Hyperlipidemia, Hypertension, Malignancy, Thyroid Disfunction Patient has homicidal ideation: No Pulmonary Medical History: Reports: Hx Bronchitis Neurological Medical History: Reports: Hx Migraine Renal/ Medical History: Reports: Hx Ovarian Cysts. Denies: Hx Peritoneal Dialysis GI Medical History: Reports: Hx Irritable Bowel Psychiatric Medical History: Reports: Hx Anxiety, Hx Depression Past Surgical History: Reports: Hx Oral Surgery - Immunizations Immunizations up to date: No Hx Diphtheria, Pertussis, Tetanus Vaccination: No Review of Systems - Review of Systems Constitutional: No symptoms reported EENT: See HPI Cardiovascular: No symptoms reported Respiratory: No symptoms reported Gastrointestinal: No symptoms reported Genitourinary: No symptoms reported Female Genitourinary: No symptoms reported Musculoskeletal: No symptoms reported Skin: No symptoms reported Hematologic/Lymphatic: No symptoms reported Neurological/Psychological: See HPI Physical Exam - Vital signs Vitals: Temp Pulse Resp BP Pulse Ox 97.8 F 102 H 16 130/85 H 99 01/26/20 19:21 01/26/20 19:21 01/26/20 19:21 01/26/20 19:21 01/26/20 19:21 - Notes Notes: GENERAL: Alert, interacts well. No acute distress. HEAD: Normocephalic, atraumatic. EYES: Pupils equal, round, and reactive to light. Extraocular movements intact. Positive nystagmus especially to the right horizontally. ENT: Oral mucosa moist, tongue midline. Oropharynx unremarkable. Airway patent. Nares patent, sinuses non-tender, ear canals unremarkable. TMs with scarring especially on the left but otherwise unremarkable. NECK: Full range of motion. Supple. Trachea midline. No lymphadenopathy. LUNGS: Clear to auscultation bilaterally, no wheezes, rales, or rhonchi. No respiratory distress. Non-tender chest wall. HEART: Regular rate and rhythm. No murmur ABDOMEN: Soft, non-tender. Non-distended. EXTREMITIES: Moves all 4 extremities spontaneously. No edema, normal radial and dorsalis pedis pulses bilaterally. No cyanosis. BACK: no cervical, thoracic, lumbar midline tenderness. No saddle anesthesia, normal distal neurovascular exam. Moves all extremities in full range of motion. NEUROLOGICAL: Alert and oriented x3. Normal speech. Cranial nerves II through XII grossly intact. Strength 5/5 in all extremities. PSYCH: Normal affect, normal mood. SKIN: Warm, dry, normal turgor. No rashes or lesions noted. Course - Re-evaluation Re-evalutation: Patient with nystagmus on exam, patient with reproducible vertigo with position changes on my exam although she can ambulate without difficulty and she is nondistressed. She is not vomiting. No headache. I did review work-up from triage including CT of the head and this was unremarkable. Laboratory work-up unremarkable. Overall I do suspect this is vertigo, patient does not have any neurological deficits or concerning findings suggesting infection or stroke. Patient will be treated with meclizine, diazepam, and she does have follow-up already established. Discussed return precautions in detail. Patient states satisfaction and agreement with plan. - Vital Signs Vital signs: Temp Pulse Resp BP Pulse Ox 97.6 F 91 14 115/59 L 98 01/27/20 01:50 01/27/20 01:50 01/27/20 01:50 01/27/20 01:50 01/27/20 01:50 - Laboratory Result Diagrams: 01/26/20 21:23 01/26/20 21:23 Laboratory results interpreted by me: 01/26/20 01/26/20 01/26/20 21:23 21:23 21:23 WBC 12.0 H Glucose 130 H Urine Blood MODERATE H Discharge - Discharge Clinical Impression: Dizziness, Vertigo Condition: Stable Disposition: HOME, SELF-CARE Additional Instructions: Your evaluation is most consistent with labyrinthitis and vertigo. I recommend the Antivert as prescribed, the Valium only if needed and especially at night. If symptoms continue please follow-up with primary care on Wednesday, see also ENT referral because of your ongoing and repeated symptoms. Return if you worsen including severe headache, vomiting, fever, or any other concerning or worsening symptoms. Prescriptions: Meclizine HCl [Antivert 25 mg Tablet] 25 mg PO TID PRN #21 tablet PRN Reason: Diazepam [Valium 5 mg Tablet] 1 - 2 tab PO TID PRN #15 tablet PRN Reason: Forms: Return to Work Referrals: ROYR LYNN MD [ACTIVE STAFF] - Follow up as needed ALINA SEN DO [ASSOCIATE] - Follow up as needed
[2020-01-27 01:57] VITALS: BP 115/59
== END 2020-01-27 01:58 | disposition home or self-care (01) ==
LOC: ER 19:08
DX: R42 Dizziness and giddiness (principal); Z79.899 Other long term (current) drug therapy; Z88.0 Allergy status to penicillin; Z88.8 Allergy status to other drugs, medicaments and biological substances; F17.200 Nicotine dependence, unspecified, uncomplicated
CPT/HCPCS: 99285; 36415; 84443; 84703; 85025; 80053; 81001; 80307; 71045; 70450; J3490